=== PATIENT | female | born 1965 | race Caucasian/White ===

== ENCOUNTER 2016-10-02 09:20 | Emergency (ER) | payer MEDICARE, OTHER | END 2016-10-02 11:27 | disposition home or self-care (01) | LOC: ER 09:20 | DX: S00.93XA Contusion of unspecified part of head, initial encounter (principal); S10.93XA Contusion of unspecified part of neck, initial encounter; S13.4XXA Sprain of ligaments of cervical spine, initial encounter; M54.10 Radiculopathy, site unspecified; W18.2XXA Fall in (into) shower or empty bathtub, initial encounter; Y92.019 Unspecified place in single-family (private) house as the place of occurrence of the external cause; F41.9 Anxiety disorder, unspecified; M25.512 Pain in left shoulder; Z79.899 Other long term (current) drug therapy | CPT/HCPCS: 70450; 72125; 73030; 99070; 99284; 99284-25 ==